=== PATIENT | male | born 2000 | race Asian ===

== ENCOUNTER 2019-05-03 12:50 | Emergency (ER) | payer OTHER ==
[2019-05-03] MEDS ORDERED: Ibuprofen TAB* 800 MG PO ONE (13:41)
[2019-05-03] MEDS ORDERED: Dexamethasone TAB* 4 MG PO ONE (13:42)
--- NOTE | 2019-05-03 13:42 | ED ---
Throat Pain/Nasal Congestion - HPI Summary HPI Summary: Patient is a 18-year-old male who presents emergency department for sore throat , sinus congestion, chills and body aches 3 days. Patient associated symptoms of epistaxis with excessive nasal blowing. Patient notes mild cough without shortness of breath. Denies abdominal pain, vomiting, diarrhea. Is a local student. Symptoms are mild in severity. Swallowing makes symptoms worse. Nothing makes symptoms better. - History of Current Complaint Chief Complaint: EDThroatPain Time Seen by Provider: 05/03/19 13:33 Hx Obtained From: Patient - Allergies/Home Medications Allergies/Adverse Reactions: Allergies Allergy/AdvReac Type Severity Reaction Status Date / Time No Known Allergies Allergy Verified 05/03/19 14:44 PMH/Surg Hx/FS Hx/Imm Hx Previously Healthy: Yes Infectious Disease History: No Infectious Disease History: Denies: Traveled Outside the [place] in Last 30 Days - Social History Occupation: Student Lives: Dormitory/Roommates Hx Substance Use: No Review of Systems Positive: Fever, Chills Positive: Sore Throat, Nasal Discharge Cardiovascular: Negative Positive: Cough. Negative: Shortness Of Breath Gastrointestinal: Negative Negative: Abdominal Pain, Vomiting, Diarrhea Positive: Myalgia Skin: Negative Negative: Rash Neurological: Negative All Other Systems Reviewed And Are Negative: Yes Physical Exam Triage Information Reviewed: Yes Vital Signs On Initial Exam: Initial Vitals Temp Pulse Resp BP Pulse Ox 97.8 F 92 18 130/77 99 05/03/19 12:53 05/03/19 12:53 05/03/19 12:53 05/03/19 12:53 05/03/19 12:53 Vital Signs Reviewed: Yes Appearance: Positive: Well-Appearing - Pt. sitting on bed in NAD. Appears tired but nontoxic. Skin: Positive: Warm, Dry Head/Face: Positive: Normal Head/Face Inspection Eyes: Positive: Normal, EOMI, TIMOTHY, Conjunctiva Clear ENT: Positive: Other - Fluid behind right TM. Oral pharynx injected with bilateral tonsilar edema and excudates. Uvula midline. No muffled voice or trismus. Neck: Positive: Supple, Enlarged Nodes @ - cervical Respiratory/Lung Sounds: Positive: Clear to Auscultation, Breath Sounds Present. Negative: Rales, Rhonchi, Stridor, Wheezes Cardiovascular: Positive: Normal, RRR Neurological: Positive: Normal, CN Intact II-III Psychiatric: Positive: Affect/Mood Appropriate Procedures - Sedation Patient Received Moderate/Deep Sedation with Procedure: No Diagnostics - Vital Signs Vital Signs Temp Pulse Resp BP Pulse Ox 05/03/19 12:53 97.8 F 92 18 130/77 99 - Laboratory Lab Statement: Any lab studies that have been ordered have been reviewed, and results considered in the medical decision making process. EENT Course/Dx - Course Course Of Treatment: Patient with tonsillar edema and exudates. No evidence of peritonsillar abscess. Patient nontoxic. Negative rapid strep and influenza. Given exam we'll treat for suspected bacterial infection with amoxicillin. Patient was given a dose of Decadron in the ER for inflammation as well as ibuprofen. Advised to increase fluids and rest. Close follow-up with [facility] and return to the ER symptoms change or worsen. Patient understands and agrees with plan. - Differential Diagnoses Differential Diagnoses: Influenza, Tonsilitis, URI/Bronchitis - Diagnoses Provider Diagnoses: Tonsillitis with exudate Discharge ED - Sign-Out/Discharge Documenting (check all that apply): Patient Departure - Discharge Plan Condition: Good Disposition: HOME Prescriptions: Amoxicillin PO (*) [Amoxicillin 500 MG CAP*] 500 mg PO Q12H #20 cap Ibuprofen TAB* [Motrin TAB* 800 MG] 800 mg PO Q8H #20 tab Patient Education Materials: Tonsillitis (ED) Referrals: [facility] [Primary Care Provider] - Additional Instructions: Follow up with [facility] in 2-3 days for recheck Take medication as directed Increase fluids and rest Return to ER if symptoms change or worsen - Billing Disposition and Condition Condition: GOOD Disposition: Home - Attestation Statements Provider Attestation: I was available for consult. This patient was seen by the MASSIMO. The patient was not presented to, seen by, or examined by me. Raffi Pa MD
[2019-05-03 13:57] LABS: Rapid Strep Molecular Negative (Negative)
[2019-05-03 14:06] LABS: Influenza A Molecular NEGATIVE (Negative); Influenza B Molecular NEGATIVE (Negative)
[2019-05-03] MEDS ORDERED: Amoxicillin PO (*) 875 MG TAB PO ONE (14:38)
[2019-05-03 15:06] VITALS: BP 128/69
== END 2019-05-03 15:03 | disposition home or self-care (01) ==
LOC: ED 12:50
DX: J03.90 Acute tonsillitis, unspecified (principal)
CPT/HCPCS: 87651; 99283; A9270-GY; J8540